=== PATIENT | female | born 1960 | race Caucasian/White ===

== ENCOUNTER 2017-09-10 12:31 | Emergency (ER) | payer BC ==
[~2017-09-10] VITALS: Ht 172.7 cm; Wt 113.4 kg
[~2017-09-10 12:31] MED LIST: ASACOL HD800 MG PO; ESTR.05PBW TOP; HYDACE5 PO; MESA400ER; Multiple Vitam1 EAC1 PO; NAPR550 PO; NULEV; OMEP10ER; Stool Softener100 MG PO
[2017-09-10] MEDS ORDERED: Norco 5-325 Ta1 EACH PO (12:55)
[2017-09-10] MEDS ORDERED: Prednisone20 MG PO (12:55)
[2017-09-11] MEDS ORDERED: HYDMOR2 PO (16:08)
== END 2017-09-10 13:30 | disposition home or self-care (01) ==
LOC: ER 12:31
DX: M54.41 Lumbago with sciatica, right side (principal); Z79.899 Other long term (current) drug therapy; Z79.52 Long term (current) use of systemic steroids
CPT/HCPCS: 99283

== ENCOUNTER 2017-09-10 22:21 | Emergency (ER) | payer BC ==
[~2017-09-10] VITALS: Ht 172.7 cm; Wt 113.4 kg
[~2017-09-10 22:21] MED LIST changes: +Norco 5-325 Ta1 EACH PO; +Prednisone20 MG PO
[2017-09-11] MEDS ORDERED: HYDMOR2 PO (16:08)
== END 2017-09-10 23:33 | disposition home or self-care (01) ==
LOC: ER 22:21
DX: M54.41 Lumbago with sciatica, right side (principal); Z79.899 Other long term (current) drug therapy; Z79.52 Long term (current) use of systemic steroids
CPT/HCPCS: 96372; 99283; J1885; J3010

== ENCOUNTER 2017-09-11 10:26 | Emergency (ER) | payer BC ==
[~2017-09-11] VITALS: Ht 172.7 cm; Wt 113.4 kg
[2017-09-11] MEDS ORDERED: HYDMOR2 PO (16:08)
== END 2017-09-11 16:21 | disposition home or self-care (01) ==
LOC: ER 10:26
DX: M54.31 Sciatica, right side (principal); E11.9 Type 2 diabetes mellitus without complications; Z79.899 Other long term (current) drug therapy; Z79.52 Long term (current) use of systemic steroids
CPT/HCPCS: 36415; 84484; 93005; 93010; 96374; 96375; 99284; J1170; J2405; J3010

== ENCOUNTER 2020-10-25 04:49 | Day surgery (SDC) | payer BC, OTHER ==
[~2020-10-25 04:49] MED LIST changes: +HYDMOR2 PO
[2020-10-25] MEDS ORDERED: LEVSOD25 PO (14:20)
[2020-10-25] MEDS ORDERED: PROG100 PO (14:20)
[2020-10-25] MEDS ORDERED: Adipex-P37.5 MG PO (14:20)
[2020-10-25] MEDS ORDERED: VITAMIN D5000 UNIT PO (14:21)
== END 2020-10-25 15:12 | disposition home or self-care (01) ==
LOC: ATC 04:49
DX: K51.90 Ulcerative colitis, unspecified, without complications (principal); E03.9 Hypothyroidism, unspecified; E28.2 Polycystic ovarian syndrome
CPT/HCPCS: 96365; A9270; J3380; J7050

== ENCOUNTER 2020-11-08 05:05 | Day surgery (SDC) | payer BC, OTHER ==
[~2020-11-08 05:05] MED LIST changes: +Adipex-P37.5 MG PO; +LEVSOD25 PO; +PROG100 PO; +VITAMIN D5000 UNIT PO
== END 2020-11-08 16:25 | disposition home or self-care (01) ==
LOC: ATC 05:05
DX: K51.90 Ulcerative colitis, unspecified, without complications (principal); E03.9 Hypothyroidism, unspecified; Z80.0 Family history of malignant neoplasm of digestive organs
CPT/HCPCS: 96365; A9270; J3380; J7050

== ENCOUNTER 2020-12-06 03:54 | Day surgery (SDC) | payer BC, OTHER | END 2020-12-06 16:41 | disposition home or self-care (01) | LOC: ATC 03:54 | DX: K51.90 Ulcerative colitis, unspecified, without complications (principal); E03.9 Hypothyroidism, unspecified | CPT/HCPCS: 96365; A9270; J3380; J7050 ==

== ENCOUNTER 2021-02-07 00:25 | Day surgery (SDC) | payer BC, OTHER | END 2021-02-07 15:57 | disposition home or self-care (01) | LOC: ATC 00:25 | DX: K51.00 Ulcerative (chronic) pancolitis without complications (principal); E03.9 Hypothyroidism, unspecified; Z86.16 Personal history of COVID-19; Z80.0 Family history of malignant neoplasm of digestive organs | CPT/HCPCS: A9270; J3380; J7050 ==

== ENCOUNTER 2021-06-07 00:59 | Day surgery (SDC) | payer BC, OTHER ==
[~2021-06-07] VITALS: Wt 124.5 kg
== END 2021-06-07 16:37 | disposition home or self-care (01) ==
LOC: ATC 00:59
DX: K51.90 Ulcerative colitis, unspecified, without complications (principal); E03.9 Hypothyroidism, unspecified; Z79.899 Other long term (current) drug therapy
CPT/HCPCS: 96365; A9270; J3380; J7050

== ENCOUNTER 2021-08-10 02:45 | Day surgery (SDC) | payer BC, OTHER | END 2021-08-10 17:15 | disposition home or self-care (01) | LOC: ATC 02:45 | DX: K51.00 Ulcerative (chronic) pancolitis without complications (principal); E03.9 Hypothyroidism, unspecified; Z80.0 Family history of malignant neoplasm of digestive organs | CPT/HCPCS: 96365; A9270; J3380; J7050 ==

== ENCOUNTER 2021-10-19 05:08 | Day surgery (SDC) | payer BC, OTHER | END 2021-10-19 14:37 | disposition home or self-care (01) | LOC: ATC 05:08 | DX: K51.90 Ulcerative colitis, unspecified, without complications (principal); E03.9 Hypothyroidism, unspecified; E28.2 Polycystic ovarian syndrome | CPT/HCPCS: 96365; A9270; J3380; J7050 ==

== ENCOUNTER 2022-04-12 00:17 | Day surgery (SDC) | payer BC, OTHER | END 2022-04-12 15:10 | disposition home or self-care (01) | LOC: ATC 00:17 | DX: K51.90 Ulcerative colitis, unspecified, without complications (principal); E03.9 Hypothyroidism, unspecified | CPT/HCPCS: 96365; A9270; J3380; J7050 ==

== ENCOUNTER 2022-06-13 00:07 | Day surgery (SDC) | payer BC, OTHER | END 2022-06-13 15:12 | disposition home or self-care (01) | LOC: ATC 00:07 | DX: K51.90 Ulcerative colitis, unspecified, without complications (principal); E03.9 Hypothyroidism, unspecified; E28.2 Polycystic ovarian syndrome; Z80.0 Family history of malignant neoplasm of digestive organs | CPT/HCPCS: 96365; A9270; J3380; J7050 ==

== ENCOUNTER 2022-11-29 01:46 | Day surgery (SDC) | payer BC, OTHER ==
[2022-11-29 14:10] VITALS: BP 115/83
== END 2022-11-29 15:07 | disposition home or self-care (01) ==
LOC: ATC 01:46
DX: K51.90 Ulcerative colitis, unspecified, without complications (principal)
CPT/HCPCS: 96365; A9270; J3380; J7050

== ENCOUNTER 2023-01-24 00:39 | Day surgery (SDC) | payer BC, OTHER ==
[2023-01-24 14:19] VITALS: BP 118/87
== END 2023-01-24 15:14 | disposition home or self-care (01) ==
LOC: ATC 00:39
DX: K51.00 Ulcerative (chronic) pancolitis without complications (principal); E03.9 Hypothyroidism, unspecified; E28.2 Polycystic ovarian syndrome
CPT/HCPCS: 96365; A9270; J3380; J7050

== ENCOUNTER 2023-03-21 02:35 | Day surgery (SDC) | payer BC, OTHER ==
[2023-03-21 14:00] VITALS: BP 130/83
== END 2023-03-21 23:38 | disposition home or self-care (01) ==
LOC: ATC 02:35
DX: K51.90 Ulcerative colitis, unspecified, without complications (principal)
CPT/HCPCS: 96365; A9270; J3380; J7050

== ENCOUNTER 2023-05-16 03:11 | Day surgery (SDC) | payer BC ==
[2023-05-16 14:08] VITALS: BP 118/87
== END 2023-05-16 15:26 | disposition home or self-care (01) ==
LOC: ATC 03:11
DX: K51.90 Ulcerative colitis, unspecified, without complications (principal)
CPT/HCPCS: 96365; A9270; J3380; J7050

== ENCOUNTER 2023-07-11 01:03 | Day surgery (SDC) | payer BC, OTHER ==
[2023-07-11] MEDS ORDERED: Vedolizumab 300 MG in NS 250 ML IV SCH (06:00)
[2023-07-11] MEDS ORDERED: Acetaminophen 325 MG TABLET PO SCH (07:10)
[2023-07-11] MEDS ORDERED: Loratadine 10 MG Tab PO SCH (07:10)
[2023-07-11 14:12] VITALS: BP 114/79
== END 2023-07-11 15:09 | disposition home or self-care (01) ==
LOC: ATC 01:03
DX: K51.90 Ulcerative colitis, unspecified, without complications (principal); E03.9 Hypothyroidism, unspecified; E28.2 Polycystic ovarian syndrome
CPT/HCPCS: 96365; A9270; J3380; J7050

== ENCOUNTER 2024-02-20 01:17 | Day surgery (SDC) | payer BC, OTHER ==
[~2024-02-20 01:17] MED LIST changes: +CELE100 PO
[2024-02-20] MEDS ORDERED: Vedolizumab 300 MG in NS 250 ML IV SCH (06:00)
[2024-02-20] MEDS ORDERED: Acetaminophen 325 MG TABLET PO SCH (06:55)
[2024-02-20] MEDS ORDERED: Loratadine 10 MG Tab PO SCH (06:55)
[2024-02-20 13:56] VITALS: BP 127/97
== END 2024-02-20 14:53 | disposition home or self-care (01) ==
LOC: ATC 01:17
DX: K51.00 Ulcerative (chronic) pancolitis without complications (principal); E03.9 Hypothyroidism, unspecified; E28.2 Polycystic ovarian syndrome; Z79.890 Hormone replacement therapy; Z79.899 Other long term (current) drug therapy; Z90.710 Acquired absence of both cervix and uterus; Z90.49 Acquired absence of other specified parts of digestive tract
CPT/HCPCS: 96365; A9270; J3380; J7050

== ENCOUNTER 2024-04-16 00:28 | Day surgery (SDC) | payer BC, OTHER ==
[2024-04-16] MEDS ORDERED: Vedolizumab 300 MG in NS 250 ML IV SCH (06:00)
[2024-04-16] MEDS ORDERED: Acetaminophen 325 MG TABLET PO SCH (07:05)
[2024-04-16] MEDS ORDERED: Loratadine 10 MG Tab PO SCH (07:05)
[2024-04-16 14:12] VITALS: BP 152/75
[2024-04-16] MEDS ORDERED: OZEMPIC0.25 MG/02 SC (14:22)
== END 2024-04-16 15:30 | disposition home or self-care (01) ==
LOC: ATC 00:28
DX: K51.90 Ulcerative colitis, unspecified, without complications (principal); E03.9 Hypothyroidism, unspecified
CPT/HCPCS: 96365; A9270; J3380; J7050

== ENCOUNTER 2024-06-11 03:14 | Day surgery (SDC) | payer BC, OTHER ==
[~2024-06-11 03:14] MED LIST changes: +OZEMPIC0.25 MG/02 SC
[2024-06-11] MEDS ORDERED: Vedolizumab 300 MG in NS 250 ML IV SCH (06:00)
[2024-06-11] MEDS ORDERED: Loratadine 10 MG Tab PO SCH (07:05)
[2024-06-11] MEDS ORDERED: Acetaminophen 325 MG TABLET PO SCH (07:05)
[2024-06-11 14:12] VITALS: BP 127/81
== END 2024-06-11 15:21 | disposition home or self-care (01) ==
LOC: ATC 03:14
DX: K51.90 Ulcerative colitis, unspecified, without complications (principal); E03.9 Hypothyroidism, unspecified; Z79.890 Hormone replacement therapy; Z79.899 Other long term (current) drug therapy
CPT/HCPCS: 96365; A9270; J3380; J7050

== ENCOUNTER 2024-08-06 04:38 | Day surgery (SDC) | payer BC, OTHER ==
[2024-08-06] MEDS ORDERED: Vedolizumab 300 MG in NS 250 ML IV SCH (06:00)
[2024-08-06] MEDS ORDERED: Acetaminophen 325 MG TABLET PO SCH (07:05)
[2024-08-06] MEDS ORDERED: Loratadine 10 MG Tab PO SCH (07:05)
[2024-08-06 14:00] VITALS: BP 128/76
== END 2024-08-06 23:00 | disposition home or self-care (01) ==
LOC: ATC 04:38
DX: K51.90 Ulcerative colitis, unspecified, without complications (principal); E03.9 Hypothyroidism, unspecified; Z79.890 Hormone replacement therapy; Z79.899 Other long term (current) drug therapy; Z90.49 Acquired absence of other specified parts of digestive tract; Z90.710 Acquired absence of both cervix and uterus
CPT/HCPCS: A9270; J3380; J7050

== ENCOUNTER 2024-10-01 02:29 | Day surgery (SDC) | payer BC, OTHER ==
[2024-10-01] MEDS ORDERED: Vedolizumab 300 MG in NS 250 ML IV SCH (06:00)
[2024-10-01] MEDS ORDERED: Acetaminophen 325 MG TABLET PO SCH (07:00)
[2024-10-01] MEDS ORDERED: Loratadine 10 MG Tab PO SCH (07:00)
[2024-10-01 14:00] VITALS: BP 129/78
== END 2024-10-01 15:19 | disposition home or self-care (01) ==
LOC: ATC 02:29
DX: K51.90 Ulcerative colitis, unspecified, without complications (principal); E03.9 Hypothyroidism, unspecified; Z79.890 Hormone replacement therapy; Z79.899 Other long term (current) drug therapy
CPT/HCPCS: 96365; A9270; J3380; J7050

== ENCOUNTER 2024-11-25 03:46 | Day surgery (SDC) | payer BC, OTHER ==
[2024-11-25 10:05] VITALS: BP 113/69
== END 2024-11-25 11:30 | disposition home or self-care (01) ==
LOC: ATC 03:46
DX: K51.90 Ulcerative colitis, unspecified, without complications (principal); K21.9 Gastro-esophageal reflux disease without esophagitis; Z79.899 Other long term (current) drug therapy
CPT/HCPCS: 96365; A9270; J3380; J7050

== ENCOUNTER 2025-01-21 01:42 | Day surgery (SDC) | payer BC, OTHER ==
[2025-01-21 13:59] VITALS: BP 103/66
== END 2025-01-21 15:18 | disposition home or self-care (01) ==
LOC: ATC 01:42
DX: K51.90 Ulcerative colitis, unspecified, without complications (principal); K21.9 Gastro-esophageal reflux disease without esophagitis; E11.9 Type 2 diabetes mellitus without complications; E78.00 Pure hypercholesterolemia, unspecified; K76.0 Fatty (change of) liver, not elsewhere classified; E03.9 Hypothyroidism, unspecified; Z79.890 Hormone replacement therapy; Z79.899 Other long term (current) drug therapy; Z90.49 Acquired absence of other specified parts of digestive tract
CPT/HCPCS: A9270; J3380; J7050

== ENCOUNTER 2025-03-18 01:03 | Day surgery (SDC) | payer BC, OTHER ==
[2025-03-18 14:16] VITALS: BP 108/66
== END 2025-03-18 15:21 | disposition home or self-care (01) ==
LOC: ATC 01:03
DX: K51.90 Ulcerative colitis, unspecified, without complications (principal); Z79.899 Other long term (current) drug therapy
CPT/HCPCS: 96365; A9270; J3380; J7050